=== PATIENT | female | born 1995 | race American Indian/Alaskan Native ===

== ENCOUNTER 2020-09-18 21:12 | Outpatient (CLI) | payer MEDICAID ==
[2020-09-18 21:34] VITALS: BP 132/82
[2020-09-18] MEDS ORDERED: LACTATED RINGERS 1,000 ML IV ONE (21:46)
[2020-09-18 22:14] LABS: Bilirubin,Urine NEG (Negative); Blood,Urine NEG (Negative); Color,Urine Yellow (Yellow); Mucus,Urine 2+ /HPF; Urobilinogen,Urine < 2.0 mg/dL (<2.0)
== END 2020-09-18 22:55 | disposition home or self-care (01) ==
LOC: TRG 21:12 → APU 21:19 → TRG 22:55
PROVIDERS: ATTEND Obstetrics & Gynecology
DX: O26.93 Pregnancy related conditions, unspecified, third trimester (principal); R10.9 Unspecified abdominal pain; Z3A.31 31 weeks gestation of pregnancy
CPT/HCPCS: 59025; 81001; 87086

== ENCOUNTER 2020-10-31 18:43 | Outpatient (CLI) | payer MEDICAID ==
[2020-10-31 19:09] VITALS: BP 132/75
== END 2020-10-31 21:35 | disposition home or self-care (01) ==
LOC: TRG 18:43 → APU 18:45 → TRG 21:35
PROVIDERS: ATTEND Obstetrics & Gynecology
DX: Z34.93 Encounter for supervision of normal pregnancy, unspecified, third trimester (principal); Z3A.37 37 weeks gestation of pregnancy
CPT/HCPCS: 59025

== ENCOUNTER 2020-11-05 14:31 | Outpatient (CLI) | payer MEDICAID ==
[2020-11-05 15:12] VITALS: BP 125/70
--- NOTE | 2020-11-05 17:13 | Ultrasound Report ---
ULTRASOUND OBSTETRIC LIMITED ULTRASOUND BIOPHYSICAL PROFILE INDICATION / CLINICAL INFORMATION: bpp/alisha. Clinical Gestational Age (GA): 38.1 weeks.days COMPARISON: None available. FINDINGS: BREATHING MOVEMENT = 2 GROSS BODY MOVEMENT = 2 TONE = 2 QUALITATIVE AMNIOTIC FLUID VOLUME = 2 TOTAL BIOPHYSICAL SCORE = 8/8 HEART RATE (beats per minute): 134-141 AMNIOTIC FLUID INDEX (cm) = 14.1 (normal = 7-24 cm) PRESENTATION: Cephalic. ADDITIONAL FINDINGS: None. IMPRESSION: 1. Biophysical Score = 8/8 2. Single gestation with cephalic presentation and no significant abnormality.. Signer Name: Christopher Couch MD Signed: 11/05/2020 5:09 PM Workstation Name: [id number]
== END 2020-11-05 17:27 | disposition home or self-care (01) ==
LOC: TRG 14:31 → APU 14:32 → TRG 17:27
PROVIDERS: ATTEND Obstetrics & Gynecology
DX: Z34.93 Encounter for supervision of normal pregnancy, unspecified, third trimester (principal); Z3A.38 38 weeks gestation of pregnancy
CPT/HCPCS: 59025; 76815; 76819

== ENCOUNTER 2020-11-11 11:54 | Inpatient (IN) | payer MEDICAID ==
[2020-11-11] MEDS ORDERED: LACTATED RINGERS 1,000 ML ONE (12:49)
[2020-11-11] MEDS ORDERED: TERBUTALINE 1 MG/1 ML INJ SUB-Q PRN (12:52)
[2020-11-11] MEDS ORDERED: fentaNYL 100 MCG/2 ML INJ IV PRN (12:52)
[2020-11-11] MEDS ORDERED: MINERAL OIL 30 ML ORAL LIQD PO PRN (12:52)
[2020-11-11] MEDS ORDERED: BUTORPHANOL 2 MG/1 ML INJ IV PRN ×2 (12:52)
[2020-11-11] MEDS ORDERED: LIDOCAINE (2%) 20 MG/1 ML VIAL 20 ML MDV INFILTRATI ONE (12:52)
[2020-11-11] MEDS ORDERED: ePHEDrine SULFATE 50 MG/1 ML INJ IV PRN (12:52)
[2020-11-11] MEDS ORDERED: ACETAMINOPHEN 325 MG TAB PO PRN (12:52)
[2020-11-11] MEDS ORDERED: ONDANSETRON 4 MG/2 ML INJ IV PRN ×2 (12:52→19:20)
[2020-11-11] MEDS ORDERED: NalbUPHINE 10 MG/1 ML INJ IV PRN (12:52)
[2020-11-11] MEDS ORDERED: OXYTOCIN DRIP 30 UNITS/500 ML BAG IV SCH ×2 (13:00)
--- NOTE | 2020-11-11 13:11 | History and Physical Report ---
History of Present Illness Date of examination: 11/11/20 Chief complaint: active labor History of present illness: 25yo at 39+0/7 weeks with DARIANA presents to OB triage in active labor. PNC at [facility]. PNR in chart Past History - Obstetrical History Expected Date of Delivery: 11/18/20 Actual Gestation: 39 Week(s) 0 Day(s) : 4 Para: 1 Medications and Allergies Allergies Allergy/AdvReac Type Severity Reaction Status Date / Time amoxicillin Allergy Hives Verified 09/18/20 21:45 Active Meds: Active Medications Acetaminophen (Acetaminophen 325 Mg Tab) 650 mg PO Q4H PRN PRN Reason: Pain, Mild (1-3) Butorphanol Tartrate (Butorphanol 2 Mg/1 Ml Inj) 1 mg IV Q2H PRN PRN Reason: Pain, Moderate(4-6) LABOR PAIN Butorphanol Tartrate (Butorphanol 2 Mg/1 Ml Inj) 2 mg IV Q2H PRN PRN Reason: Pain , Severe (7-10) Ephedrine Sulfate (Ephedrine Sulfate 50 Mg/1 Ml Inj) 10 mg IV Q2M PRN PRN Reason: Hypotension Fentanyl (Fentanyl 100 Mcg/2 Ml Inj) 100 mcg IV Q2H PRN PRN Reason: Pain,Severe (7-10) LABOR PAIN Oxytocin/Sodium Chloride (Pitocin/Ns 30 Unit/500ml) 30 units in 500 mls @ 2 mls/hr IV TITR LEYLA; Protocol Lactated Ringer's (Lactated Ringers) 1,000 mls @ 125 mls/hr IV DIRECT LEYLA Oxytocin/Sodium Chloride (Pitocin/Ns 30 Unit/500ml) 30 units in 500 mls @ 40 mls/hr IV TITR LEYLA; Protocol Ampicillin Sodium (Ampicillin/Ns 1 Gm/50 Ml) 1 gm in 50 mls @ 100 mls/hr IV Q4H LEYLA; Protocol Ampicillin Sodium (Ampicillin/Ns 2 Gm/100 Ml) 2 gm in 100 mls @ 100 mls/hr IV ONCE ONE; Protocol Stop: 11/11/20 13:51 Mineral Oil (Mineral Oil 30 Ml Oral Liqd) 30 ml PO QHS PRN PRN Reason: Constipation Nalbuphine HCl (Nalbuphine 10 Mg/1 Ml Inj) 10 mg IV Q2H PRN PRN Reason: Pain, Moderate (4-6) Ondansetron HCl (Ondansetron 4 Mg/2 Ml Inj) 4 mg IV Q8H PRN PRN Reason: Nausea And Vomiting Terbutaline Sulfate (Terbutaline 1 Mg/1 Ml Inj) 0.25 mg SUB-Q ONCE PRN PRN Reason: Hyperstimulation/Hypertonicity Review of Systems All systems: negative (painful contractions) - Vital Signs Vital signs: Vital Signs Pulse BP Pulse Ox 113 H 127/77 98 11/11/20 12:16 11/11/20 12:16 11/11/20 12:16 Temp Pulse Resp BP Pulse Ox 99.0 F 96 H 127/77 96 11/11/20 12:22 11/11/20 13:06 11/11/20 12:16 11/11/20 13:06 - Physical Exam Breasts: Positive: deferred Cardiovascular: Regular rate Lungs: Positive: Clear to auscultation Abdomen: Positive: normal appearance - Obstetrical FHR: category 1 Cervical Dilatation: 6 Cervical Effacement Percentage: 90 station: -1 Results Result Diagrams: 11/11/20 Unknown All other labs normal. Assessment and Plan A: Active Labor Plan: Admission CFM expect
[2020-11-11] MEDS ORDERED: AMPICILLIN/NS 2 GM/100 ML 2 GM/100 ML BAG IV ONE (13:30)
[2020-11-11 13:36] LABS: Hematocrit 35.6 % (30.3-42.9); Hemoglobin 12.2 gm/dl (10.1-14.3); Mean Corpuscular HGB Conc 34 % (30-34); Mean Corpuscular Volume 88 fl (79-97); Platelet Count 186 K/mm3 (140-440); Red Blood Count 4.05 M/mm3 (3.65-5.03); Red Cell Distribution Width 13.5 % (13.2-15.2)
[2020-11-11] MEDS ORDERED: LACTATED RINGERS 1,000 ML IV SCH (14:00)
[2020-11-11] MEDS ORDERED: AMPICILLIN/NS 1 GM/50 ML 1 GM/50 ML BAG IV SCH (17:30)
--- NOTE | 2020-11-11 19:15 | Progress Note ---
Subjective - Subjective Date of service: 11/11/20 Interval history: 25yo at weeks with DARIANA presents to OB triage in active labor. PNC at [facility]. Objective - Vital Signs Vital Signs: Vital Signs - 12hr 11/11/20 11/11/20 11/11/20 12:16 12:21 12:22 Temperature 99.0 F Pulse Rate 113 H 115 H Respiratory Rate Blood Pressure 127/77 O2 Sat by Pulse 98 99 Oximetry 11/11/20 11/11/20 11/11/20 12:26 12:31 12:36 Temperature Pulse Rate 106 H 101 H 104 H Respiratory Rate Blood Pressure O2 Sat by Pulse 99 98 98 Oximetry 11/11/20 11/11/20 11/11/20 12:41 12:46 12:51 Temperature Pulse Rate 105 H 90 101 H Respiratory Rate Blood Pressure O2 Sat by Pulse 99 99 100 Oximetry 11/11/20 11/11/20 11/11/20 12:56 12:58 13:01 Temperature Pulse Rate 90 96 H 109 H Respiratory Rate Blood Pressure O2 Sat by Pulse 100 89 99 Oximetry 11/11/20 11/11/20 11/11/20 13:06 13:31 13:32 Temperature Pulse Rate 96 H 101 H 99 H Respiratory Rate Blood Pressure 136/74 O2 Sat by Pulse 96 99 Oximetry 11/11/20 11/11/20 11/11/20 13:36 13:41 13:46 Temperature Pulse Rate 91 H 100 H 114 H Respiratory Rate Blood Pressure O2 Sat by Pulse 99 98 99 Oximetry 11/11/20 11/11/20 11/11/20 13:51 13:56 14:01 Temperature Pulse Rate 97 H 89 98 H Respiratory Rate Blood Pressure O2 Sat by Pulse 99 100 100 Oximetry 11/11/20 11/11/20 11/11/20 14:06 14:11 14:16 Temperature Pulse Rate 92 H 93 H 99 H Respiratory Rate Blood Pressure O2 Sat by Pulse 100 100 100 Oximetry 11/11/20 11/11/20 11/11/20 14:25 14:30 14:35 Temperature Pulse Rate 90 105 H 102 H Respiratory Rate Blood Pressure O2 Sat by Pulse 100 100 100 Oximetry 11/11/20 11/11/20 11/11/20 14:40 14:45 14:50 Temperature Pulse Rate 96 H 122 H 104 H Respiratory Rate Blood Pressure O2 Sat by Pulse 99 99 100 Oximetry 11/11/20 11/11/20 11/11/20 14:55 15:00 15:05 Temperature Pulse Rate 105 H 115 H 103 H Respiratory Rate Blood Pressure O2 Sat by Pulse 98 100 100 Oximetry 11/11/20 11/11/20 11/11/20 15:10 15:15 15:20 Temperature Pulse Rate 119 H 117 H 115 H Respiratory Rate Blood Pressure O2 Sat by Pulse 100 100 99 Oximetry 11/11/20 11/11/20 11/11/20 15:25 15:30 15:35 Temperature Pulse Rate 111 H 101 H 100 H Respiratory Rate Blood Pressure O2 Sat by Pulse 99 100 100 Oximetry 11/11/20 11/11/20 11/11/20 15:40 15:45 15:50 Temperature Pulse Rate 105 H 117 H 105 H Respiratory Rate Blood Pressure O2 Sat by Pulse 99 100 100 Oximetry 11/11/20 11/11/20 11/11/20 15:55 16:00 16:05 Temperature Pulse Rate 108 H 105 H 114 H Respiratory Rate Blood Pressure O2 Sat by Pulse 100 100 98 Oximetry 11/11/20 11/11/20 11/11/20 16:10 16:11 16:13 Temperature 99.0 F Pulse Rate 101 H 106 H Respiratory Rate Blood Pressure 134/79 O2 Sat by Pulse 100 Oximetry 11/11/20 11/11/20 11/11/20 16:15 16:20 16:25 Temperature Pulse Rate 103 H 118 H 110 H Respiratory Rate Blood Pressure 132/76 O2 Sat by Pulse 100 100 100 Oximetry 11/11/20 11/11/20 11/11/20 16:30 16:35 16:40 Temperature Pulse Rate 107 H 113 H 111 H Respiratory Rate Blood Pressure 135/73 O2 Sat by Pulse 100 99 100 Oximetry 11/11/20 11/11/20 11/11/20 16:45 16:50 16:55 Temperature Pulse Rate 119 H 104 H 110 H Respiratory Rate Blood Pressure 132/78 O2 Sat by Pulse 100 100 99 Oximetry 11/11/20 11/11/20 11/11/20 17:00 17:05 17:09 Temperature Pulse Rate 118 H 114 H Respiratory 22 Rate Blood Pressure O2 Sat by Pulse 100 100 Oximetry 11/11/20 11/11/20 11/11/20 17:10 17:15 17:17 Temperature Pulse Rate 112 H 106 H 107 H Respiratory Rate Blood Pressure 140/97 O2 Sat by Pulse 100 93 84 Oximetry 11/11/20 11/11/20 11/11/20 17:19 17:20 17:25 Temperature Pulse Rate 98 H 100 H 103 H Respiratory Rate Blood Pressure 139/69 132/65 O2 Sat by Pulse 96 98 Oximetry 11/11/20 11/11/20 11/11/20 17:30 17:35 17:40 Temperature Pulse Rate 111 H 101 H 109 H Respiratory Rate Blood Pressure O2 Sat by Pulse 99 99 98 Oximetry 11/11/20 11/11/20 11/11/20 17:41 17:45 17:50 Temperature Pulse Rate 98 H 111 H 88 Respiratory Rate Blood Pressure 126/60 O2 Sat by Pulse 98 98 Oximetry 11/11/20 11/11/20 11/11/20 17:55 18:00 18:05 Temperature Pulse Rate 98 H 100 H 99 H Respiratory Rate Blood Pressure 128/63 O2 Sat by Pulse 98 99 99 Oximetry 11/11/20 11/11/20 11/11/20 18:09 18:10 18:11 Temperature Pulse Rate 103 H 93 H Respiratory 18 Rate Blood Pressure 135/71 O2 Sat by Pulse 99 Oximetry 11/11/20 11/11/20 11/11/20 18:15 18:20 18:25 Temperature Pulse Rate 94 H 109 H 91 H Respiratory Rate Blood Pressure 135/76 O2 Sat by Pulse 100 100 99 Oximetry 11/11/20 11/11/20 11/11/20 18:30 18:35 18:38 Temperature Pulse Rate 103 H 100 H 98 H Respiratory Rate Blood Pressure O2 Sat by Pulse 100 99 90 Oximetry 11/11/20 11/11/20 11/11/20 18:40 18:41 18:45 Temperature Pulse Rate 100 H 95 H 92 H Respiratory Rate Blood Pressure 142/61 O2 Sat by Pulse 100 99 Oximetry 11/11/20 11/11/20 11/11/20 18:46 18:50 18:53 Temperature Pulse Rate 97 H 104 H 92 H Respiratory Rate Blood Pressure O2 Sat by Pulse 93 100 93 Oximetry 11/11/20 11/11/20 18:55 19:00 Temperature Pulse Rate 104 H 100 H Respiratory Rate Blood Pressure 144/65 O2 Sat by Pulse 99 100 Oximetry - Labs Labs: Laboratory Results - last 24 hr 03/22/21 03/22/21 14:32 Unknown WBC 7.1 RBC 4.05 Hgb 12.2 Hct 35.6 MCV 88 MCH 30 MCHC 34 RDW 13.5 Plt Count 186 Blood Type B POSITIVE Antibody Screen Negative
[2020-11-11] MEDS ORDERED: diphenhydrAMINE 25 MG CAP PO PRN (19:20)
[2020-11-11] MEDS ORDERED: PROMETHAZINE 25 MG TAB PO PRN (19:20)
[2020-11-11] MEDS ORDERED: MAGNESIUM HYDROXIDE (MOM) ORAL LIQD UDC PO PRN (19:20)
[2020-11-11] MEDS ORDERED: LANOLIN/ZINC/DIMETHICONE (LANSINOH) 7 GM TP PRN (19:20)
[2020-11-11] MEDS ORDERED: HYDROcodone/ACETAMINOPHEN 5-325 MG TAB PO PRN (19:20)
[2020-11-11] MEDS ORDERED: WITCH HAZEL/ GLYCERIN PAD TP PRN (19:20)
[2020-11-11] MEDS ORDERED: PROMETHAZINE 25 MG RECT SUPP PR PRN (19:20)
--- NOTE | 2020-11-11 19:20 | Procedure Note ---
OB Delivery Note - Delivery Date of Delivery: 11/11/20 Surgeon: YURIY LOPEZ Estimated blood loss: 200cc - Vaginal Delivery position: OA Intrapartum events: none Delivery induction: none Delivery augmentation: rupture of membranes, pitocin Delivery monitor: external FHT, external uterine Route of delivery: Delivery placenta: spontaneous Delivery cord: 3 umbilical vessels Episiotomy: none Delivery laceration: none Anesthesia: intravenous Delivery comments: I was called to the room for sterile cervical exam 10/100%/+1 station, patient had urged to push. She proceeded to push to delivery of a viable male infant with weight 2879gms and 8/9. Position was CRISTOPHER, no nuchal cord. Delivery of the anterior shoulder was atraumatic, remainder of delivery uneventful. Spontaneous cry at delivery. Baby was bulb suctioned and warmed on the bed and placed on the maternal abdomen. After delayed cord clamping of around 1 minutes the cord was clamped and cut and baby handed to waiting NICU staff. An intact placenta with three-vessel cord was delivered spontaneously. The fundus was noted to be firm and there were no vaginal or cervical lacerations. All sponge needle instrument counts are correct x2. Mom and baby stable to . EBL 200. No complications. Donna Lopez MD
[2020-11-11] MEDS: IBUPROFEN 600 MG TAB PO SCH (22:00)
[2020-11-12] MEDS: IBUPROFEN 600 MG TAB PO SCH ×3 (04:33→21:46)
[2020-11-12 06:27] LABS: Hemoglobin 10.5 gm/dl (10.1-14.3)
--- NOTE | 2020-11-12 07:40 | Progress Note ---
Assessment and Plan A: PPD1 s/p at term P: Continue with routine care with anticipated discharge at 24hr . Subjective - Subjective Date of service: 11/12/20 Principal diagnosis: PPD1 s/p at term Interval history: Patient feeling well without complaints. Reports adequate pain control and decreasing lochia. Patient reports: appetite normal, voiding normally, pain well controlled, ambu lating normally : doing well Objective - Vital Signs Latest vital signs: Vital Signs Temp Pulse Resp BP BP Pulse Ox 11/12/20 05:00 98.3 F 92 H 18 120/64 98 11/12/20 01:04 98.0 F 107 H 18 117/61 97 11/11/20 21:24 98.3 F 94 H 20 111/50 96 11/11/20 20:55 98.9 F 101 H 128/58 11/11/20 20:50 93 H 99 11/11/20 20:45 102 H 99 11/11/20 20:40 103 H 132/62 98 11/11/20 20:35 94 H 99 11/11/20 20:30 100 H 98 11/11/20 20:25 95 H 136/74 99 11/11/20 20:20 99 H 98 11/11/20 20:15 108 H 99 11/11/20 20:10 97 H 121/58 99 11/11/20 20:05 96 H 99 11/11/20 20:00 104 H 99 11/11/20 19:55 107 H 131/62 98 11/11/20 19:50 101 H 99 11/11/20 19:45 107 H 98 11/11/20 19:35 81 97 11/11/20 19:30 98.2 F 100 H 18 131/60 131/60 98 11/11/20 19:25 115 H 136/74 11/11/20 19:05 118 H 100 11/11/20 19:00 100 H 100 11/11/20 18:55 104 H 144/65 99 11/11/20 18:53 92 H 93 11/11/20 18:50 104 H 100 11/11/20 18:46 97 H 93 11/11/20 18:45 92 H 99 11/11/20 18:41 95 H 142/61 11/11/20 18:40 100 H 100 11/11/20 18:38 98 H 90 11/11/20 18:35 100 H 99 11/11/20 18:30 103 H 100 11/11/20 18:25 91 H 135/76 99 11/11/20 18:20 109 H 100 11/11/20 18:15 94 H 100 11/11/20 18:11 93 H 135/71 11/11/20 18:10 103 H 99 11/11/20 18:09 18 11/11/20 18:05 99 H 99 11/11/20 18:00 100 H 99 11/11/20 17:55 98 H 128/63 98 11/11/20 17:50 88 98 11/11/20 17:45 111 H 98 11/11/20 17:41 98 H 126/60 11/11/20 17:40 109 H 98 11/11/20 17:35 101 H 99 11/11/20 17:30 111 H 99 11/11/20 17:25 103 H 132/65 98 11/11/20 17:20 100 H 96 11/11/20 17:19 98 H 139/69 11/11/20 17:17 107 H 84 11/11/20 17:15 106 H 93 11/11/20 17:10 112 H 140/97 100 11/11/20 17:09 22 11/11/20 17:05 114 H 100 11/11/20 17:00 118 H 100 11/11/20 16:55 110 H 132/78 99 11/11/20 16:50 104 H 100 11/11/20 16:45 119 H 100 11/11/20 16:40 111 H 135/73 100 11/11/20 16:35 113 H 99 11/11/20 16:30 107 H 100 11/11/20 16:25 110 H 132/76 100 11/11/20 16:20 118 H 100 11/11/20 16:15 103 H 100 11/11/20 16:13 99.0 F 11/11/20 16:11 106 H 134/79 11/11/20 16:10 101 H 100 11/11/20 16:05 114 H 98 11/11/20 16:00 105 H 100 11/11/20 15:55 108 H 100 11/11/20 15:50 105 H 100 11/11/20 15:45 117 H 100 11/11/20 15:40 105 H 99 11/11/20 15:35 100 H 100 11/11/20 15:30 101 H 100 11/11/20 15:25 111 H 99 11/11/20 15:20 115 H 99 11/11/20 15:15 117 H 100 11/11/20 15:10 119 H 100 11/11/20 15:05 103 H 100 11/11/20 15:00 115 H 100 11/11/20 14:55 105 H 98 11/11/20 14:50 104 H 100 11/11/20 14:45 122 H 99 11/11/20 14:40 96 H 99 11/11/20 14:35 102 H 100 11/11/20 14:30 105 H 100 11/11/20 14:25 90 100 11/11/20 14:16 99 H 100 11/11/20 14:11 93 H 100 11/11/20 14:06 92 H 100 11/11/20 14:01 98 H 100 11/11/20 13:56 89 100 11/11/20 13:51 97 H 99 11/11/20 13:46 114 H 99 11/11/20 13:41 100 H 98 11/11/20 13:36 91 H 99 11/11/20 13:32 99 H 136/74 11/11/20 13:31 101 H 99 11/11/20 13:06 96 H 96 11/11/20 13:01 109 H 99 11/11/20 12:58 96 H 89 11/11/20 12:56 90 100 11/11/20 12:51 101 H 100 11/11/20 12:46 90 99 11/11/20 12:41 105 H 99 11/11/20 12:36 104 H 98 11/11/20 12:31 101 H 98 11/11/20 12:26 106 H 99 11/11/20 12:22 99.0 F 11/11/20 12:21 115 H 99 11/11/20 12:16 113 H 127/77 98 Intake and Output 11/11/20 11/11/20 11/12/20 15:59 23:59 07:59 Intake Total 840 Output Total 600 Balance 240 Intake: Intake, Free Water 840 Output: Urine 600 Void 600 Other: Total, Output Amount 600 # Voids Void 1 2 Weight 93.44 kg Estimated Blood Loss 200 - Exam Breasts: Present: deferred Uterus: Present: firm, fundal height below umbilicus
--- NOTE | 2020-11-12 07:42 | Discharge Summary ---
Providers - Providers Date of Admission: 11/11/20 19:09 Date of discharge: 11/12/20 Attending physician: WAYNE BARRY Primary care physician: WAYNE BARRY Hospitalization Reason for admission: active labor, IUP at term Delivery: Episiotomy: none Laceration: none Other procedures: none complications: none Discharge diagnosis: IUP at term delivered Ulen baby: male Condition at discharge: Good Disposition: DC-01 TO HOME OR SELFCARE Plan - Provider Discharge Summary Activity: no sex for 6 weeks, no heavy lifting 4 weeks, no strenuous exercise Diet: routine Instructions: routine Additional instructions: [] Smoking cessation referral if applicable(refer to patient education folder for contact #) [] Refer to [facility]'s [facility] [address] Booklet Call your doctor immediately for: * Fever > 100.5 * Heavy vaginal bleeding ( >1 pad per hour) * Severe persistent headache * Shortness of breath * Reddened, hot, painful area to leg or breast * Drainage or odor from incision. * Keep incision clean and dry at all times and follow doctor's instructions regarding bathing/showering - Follow up plan Follow up: JANINA CROSS DIRECTOR INDEX [Advanced Practice Nurse] - 12/09/20
[2020-11-13] MEDS: IBUPROFEN 600 MG TAB PO SCH ×3 (05:41→11:27)
[2020-11-13] MEDS ORDERED: DIPHtheria,PERTUSSIS(ACELL),TETANUS VACCINE/PF 0.5 ML VIAL IM ONE (06:00)
--- NOTE | 2020-11-13 12:32 | Consultation ---
History of Present Illness - Reason for Consult Consult date: 11/13/20 Reason for consult: MHE Requesting physician: YURIY LOPEZ - Chief Complaint Chief complaint: active labor - History of Present Psychiatric Illness PSYCH HPI Patient is a 25 year old unemployed and engaged female with no significant past medical history or psychiatric history who was admitted to mother and baby for delivery with psychiatric consult placed due to high score on Dawson scale. Patient was seen in room with fiance at bedside. Per patient, she denies any stressful even prior, during or after , states "she didnt like being lol" but glad to see her own son now. She denies having any safety concerns at home or with the baby. Patient describes a good and stable mood, denies being depressed or excessively nervous. Patient eats and sleeps well. Patient denies panic attacks, recurrent nightmares or flashbacks. Patient denies symptoms suggestive of OCD or PTSD. Patient denies hallucinations, paranoia, thought interference and no features suggestive of hypomania or jos. Patiently completely denies suicidal or homicidal thoughts. PAST PSYCHIATRIC HISTORY Diagnoses: none reported Suicide attempts or Self-harm behavior: none reported Prior psychiatric hospitalizations: none reported Substance Abuse history: none reported Previous psychiatric medications tried: none reported Outpatient treatment: none reported PAST MEDICAL HISTORY: None reported. Covid Positive Family Psychiatric History: None reported or documented SOCIAL HISTORY Marital Status: Engaged Living Arrangements: with Employment Status: unemployed Access to guns/weapons: Education: some college History of Abuse: none reported Legal History: none reported REVIEW OF SYSTEMS Constitutional: Negative for weight loss ENT: Negative for stridor Respiratory: Negative for cough or hemoptysis All other systems reviewed and are negative MENTAL STATUS EXAMINATION General Appearance and Behavior: Age appropriate, good hygiene, wearing appropriate clothes, good eye contact, cooperative polite with questioning. Cooperation: Participating/engaged Psychomotor Behavior: unremarkable and within normal limits Mood: Good Affect and affective range: congruent with mood Thought Process: Fluent/Logical, Thought Content: Within reality, Speech: Normal volume, Regular rate and rhythm, Intellectual Functioning: Average Suicidal Ideation: Denies SI Homicidal Ideation: Denies HI Impulse Control: Unimpaired Insight and Judgment: Normal insight and judgment, Memory: Normal, Attention: Normal, Orientation: Alert, oriented Diagnoses: Assessment and Plan - Psychiatric problem (1) No abnormality detected on mental health assessment Current Visit: Yes Status: Acute Z71.3 Treatment Plan MEDICATIONS: Risks, benefits and alternatives of medications discussed with the patient, questions answered and consent obtained from patient. PSYCHOTHERAPY: Supportive psychotherapy provided MEDICAL: Per primary team DELIRIUM PRECAUTIONS: Please re-orient patient frequently, keep lights on during the day, and minimize benzodiazepines and opiates as these medications could worsen patient's confusion. IP TECHNOLOGY TRANSACTIONS ATTORNEY: DISPOSITION: Do Not Recommend acute inpatient psychiatric hospitalization at this time. Case discussed with Dr. Manrique who agrees with current disposition LEGAL STATUS: Voluntary FOLLOW-UP: Will sign off Thank you for the consult. Please contact with any questions and/or concerns. Medications and Allergies Allergies Allergy/AdvReac Type Severity Reaction Status Date / Time amoxicillin Allergy Hives Verified 09/18/20 21:45 Home Medications Medication Instructions Recorded Confirmed Last Taken Type Ibuprofen [Motrin] 800 mg PO Q8HR PRN #30 tablet 11/12/20 Unknown Rx Ibuprofen [Motrin] 800 mg PO Q8HR PRN #30 tablet 11/12/20 Unknown Rx Active Meds: Active Medications Acetaminophen (Acetaminophen 325 Mg Tab) 650 mg PO Q4H PRN PRN Reason: Pain, Mild (1-3) Hydrocodone Bitart/Acetaminophen (Hydrocodone/Acetaminophen 5-325 Mg Tab) 2 each PO Q6H PRN PRN Reason: Pain, Moderate (4-6) Bisacodyl (Bisacodyl 10 Mg Rect Supp) 10 mg NJ BID PRN PRN Reason: Constipation Butorphanol Tartrate (Butorphanol 2 Mg/1 Ml Inj) 1 mg IV Q2H PRN PRN Reason: Pain, Moderate(4-6) LABOR PAIN Butorphanol Tartrate (Butorphanol 2 Mg/1 Ml Inj) 2 mg IV Q2H PRN PRN Reason: Pain , Severe (7-10) Last Admin: 11/11/20 17:09 Dose: 2 mg Documented by: Diphenhydramine HCl (Diphenhydramine 25 Mg Cap) 25 mg PO Q6H PRN PRN Reason: Itching Ephedrine Sulfate (Ephedrine Sulfate 50 Mg/1 Ml Inj) 10 mg IV Q2M PRN PRN Reason: Hypotension Fentanyl (Fentanyl 100 Mcg/2 Ml Inj) 100 mcg IV Q2H PRN PRN Reason: Pain,Severe (7-10) LABOR PAIN Oxytocin/Sodium Chloride (Pitocin/Ns 30 Unit/500ml) 30 units in 500 mls @ 2 mls/hr IV TITR LEYLA; Protocol Lactated Ringer's (Lactated Ringers) 1,000 mls @ 125 mls/hr IV DIRECT LEYLA Last Admin: 11/11/20 13:43 Dose: 125 mls/hr Documented by: Oxytocin/Sodium Chloride (Pitocin/Ns 30 Unit/500ml) 30 units in 500 mls @ 40 mls/hr IV TITR LEYLA; Protocol Last Admin: 11/11/20 17:18 Dose: 2 ml/hr, 2 mls/hr Documented by: Clindamycin HCl (Cleocin 900 Mg/50 Ml) 900 mg in 50 mls @ 100 mls/hr IV Q8H LEYLA; Protocol Last Admin: 11/11/20 13:54 Dose: 100 mls/hr Documented by: Ibuprofen (Ibuprofen 600 Mg Tab) 600 mg PO Q6H LEYLA Last Admin: 11/13/20 11:27 Dose: 600 mg Documented by: Magnesium Hydroxide (Magnesium Hydroxide (Mom) Oral Liqd Udc) 30 ml PO HS PRN PRN Reason: Constipation Mineral Oil (Mineral Oil 30 Ml Oral Liqd) 30 ml PO QHS PRN PRN Reason: Constipation Multi-Ingredient Ointment (Lanolin/Zinc/Dimethicone (Lansinoh) 7 Gm) 1 applic TP PRN PRN PRN Reason: Sore Nipples Nalbuphine HCl (Nalbuphine 10 Mg/1 Ml Inj) 10 mg IV Q2H PRN PRN Reason: Pain, Moderate (4-6) Ondansetron HCl (Ondansetron 4 Mg/2 Ml Inj) 4 mg IV Q8H PRN PRN Reason: Nausea And Vomiting Promethazine HCl (Promethazine 25 Mg Rect Supp) 25 mg NJ Q6H PRN PRN Reason: Nausea And Vomiting Promethazine HCl (Promethazine 25 Mg Tab) 25 mg PO Q6H PRN PRN Reason: Nausea And Vomiting Last Admin: 11/11/20 22:04 Dose: 25 mg Documented by: Sodium Chloride (Sodium Chloride 0.9% 10 Ml Flush Syringe) 10 ml IV PRN LEYLA Terbutaline Sulfate (Terbutaline 1 Mg/1 Ml Inj) 0.25 mg SUB-Q ONCE PRN PRN Reason: Hyperstimulation/Hypertonicity Witch Lorelei/Glycerin (Witch Lorelei/ Glycerin Pad) 1 each TP PRN PRN PRN Reason: Hemorrhoid/cleansing/soothing Mental Status Exam - Vital signs Last Vital Signs Temp 99.4 F 11/13/20 08:29 Pulse 89 11/13/20 08:29 Resp 18 11/13/20 08:29 BP 115/80 11/13/20 08:29 Pulse Ox 95 11/13/20 08:29 Results Result Diagrams: 11/12/20 06:09 All other labs normal.
[2020-11-13 14:35] VITALS: BP 134/75
== END 2020-11-13 15:04 | disposition home or self-care (01) | DRG 775 ==
LOC: TRG 11:54 → APU 11:55 → LD 13:07 → TRG 19:09 → OB 21:18
PROVIDERS: ADMIT Obstetrics & Gynecology; ATTEND Obstetrics & Gynecology
PROC: 10E0XZZ Delivery of Products of Conception, External Approach (ICD-10-PCS; principal; 2020-11-11)
DX: O80 Encounter for full-term uncomplicated delivery (principal); Z3A.39 39 weeks gestation of pregnancy; Z37.0 Single live birth; Z20.822 Contact with and (suspected) exposure to COVID-19
CPT/HCPCS: 36415; 85014; 85018; 85027; 86592; 86850; 86900; 86901; 90471; 90715; G0378; J0595; J2590; J7120; Q0169; U0003

== ENCOUNTER 2020-11-19 20:00 | Emergency (ER) | payer MEDICAID | END 2020-11-20 07:34 | LOC: ED 20:00 | DX: M79.604 Pain in right leg (principal); Z53.21 Procedure and treatment not carried out due to patient leaving prior to being seen by health care provider ==

== ENCOUNTER 2021-07-09 13:33 | Emergency (ER) | payer MEDICAID ==
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
[2021-07-09 15:04] VITALS: BP 126/72
== END 2021-07-09 15:43 | disposition home or self-care (01) ==
LOC: ED 13:33
DX: S76.812A Strain of other specified muscles, fascia and tendons at thigh level, left thigh, initial encounter (principal); S76.811A Strain of other specified muscles, fascia and tendons at thigh level, right thigh, initial encounter; R51.9 Headache, unspecified; Z88.1 Allergy status to other antibiotic agents; Z79.899 Other long term (current) drug therapy; V87.7XXA Person injured in collision between other specified motor vehicles (traffic), initial encounter; Y93.89 Activity, other specified; Y92.488 Other paved roadways as the place of occurrence of the external cause; Y99.8 Other external cause status
CPT/HCPCS: 99281

== ENCOUNTER 2022-04-02 08:13 | Outpatient (CLI) | payer MEDICAID ==
[2022-04-02] MEDS ORDERED: LACTATED RINGERS 500 ML IV ONE (09:00)
[2022-04-02 10:51] LABS: Hematocrit 35.6 % (30.3-42.9); Mean Corpuscular HGB Conc 34 % (30-34); Mean Corpuscular Volume 89 fl (79-97); Platelet Count 191 K/mm3 (140-440); Red Cell Distribution Width 13.1 % (13.2-15.2)
[2022-04-02 11:16] LABS: Alanine Aminotransferase 12 units/L (7-56); Uric Acid 3.1 mg/dL (3.5-7.6)
[2022-04-02 12:40] VITALS: BP 153/87
== END 2022-04-02 13:34 | disposition home or self-care (01) ==
LOC: TRG 08:13 → APU 08:15 → TRG 13:34
PROVIDERS: ATTEND Obstetrics & Gynecology
DX: O26.893 Other specified pregnancy related conditions, third trimester (principal); R10.9 Unspecified abdominal pain; R10.2 Pelvic and perineal pain; R51.9 Headache, unspecified
CPT/HCPCS: 36415; 59025; 82565; 83615; 84450; 84460; 84550; 85027

== ENCOUNTER 2022-04-06 16:31 | Outpatient (CLI) | payer MEDICAID ==
[2022-04-06] MEDS ORDERED: hydrALAZINE 20 MG/1 ML INJ IV PRN (16:50)
[2022-04-06 18:27] LABS: Hemoglobin 12.3 gm/dl (10.1-14.3); Mean Corpuscular HGB Conc 35 % (30-34); Mean Corpuscular Volume 88 fl (79-97); Platelet Count 200 K/mm3 (140-440); Red Blood Count 3.98 M/mm3 (3.65-5.03); Red Cell Distribution Width 12.9 % (13.2-15.2)
[2022-04-06 18:31] LABS: Mucus,Urine 1+ /HPF
[2022-04-06 18:34] LABS: Bilirubin,Urine Negative (Negative); Blood,Urine Negative (Negative); Color,Urine Yellow (Yellow); Urobilinogen,Urine < 2.0 mg/dL (<2.0)
[2022-04-06 18:37] LABS: Alanine Aminotransferase 11 units/L (7-56); Uric Acid 3.4 mg/dL (3.5-7.6)
[2022-04-06 19:17] VITALS: BP 109/58
--- NOTE | 2022-04-06 22:43 | Ultrasound Report ---
Obstetric ultrasound Biophysical profile INDICATION: well-being FINDINGS: Single live intrauterine cephalic position. MARLO measures 9.1 cm. heart rate 165. Biophysical profile 8 out of 8 IMPRESSION: Normal biophysical profile. Live intrauterine . Signer Name: Bong Badillo MD Signed: 04/06/2022 10:39 PM Workstation Name: [id number]
--- NOTE | 2022-04-06 22:43 | Ultrasound Report ---
Obstetric ultrasound Biophysical profile INDICATION: well-being FINDINGS: Single live intrauterine cephalic position. MARLO measures 9.1 cm. heart rate 165. Biophysical profile 8 out of 8 IMPRESSION: Normal biophysical profile. Live intrauterine . Signer Name: Bong Badillo MD Signed: 04/06/2022 10:39 PM Workstation Name: [id number]
== END 2022-04-06 19:36 | disposition home or self-care (01) ==
LOC: TRG 16:31 → APU 16:32 → TRG 19:36
PROVIDERS: ATTEND Obstetrics & Gynecology
DX: O13.3 Gestational [pregnancy-induced] hypertension without significant proteinuria, third trimester (principal); Z3A.31 31 weeks gestation of pregnancy
CPT/HCPCS: 36415; 76815; 76819; 81001; 82565; 83615; 84450; 84460; 84550; 85027

== ENCOUNTER 2022-05-13 14:02 | Outpatient (CLI) | payer MEDICAID ==
[2022-05-13 14:25] VITALS: BP 124/71
== END 2022-05-13 16:04 | disposition home or self-care (01) ==
LOC: TRG 14:02 → APU 14:03 → TRG 16:04
PROVIDERS: ATTEND Obstetrics & Gynecology
DX: Z34.93 Encounter for supervision of normal pregnancy, unspecified, third trimester (principal); Z3A.37 37 weeks gestation of pregnancy
CPT/HCPCS: 59025

== ENCOUNTER 2022-05-18 06:30 | Inpatient (IN) | payer MEDICAID ==
[2022-05-18] MEDS ORDERED: MINERAL OIL 30 ML ORAL LIQD PO PRN (06:32)
[2022-05-18] MEDS ORDERED: TERBUTALINE 1 MG/1 ML INJ SUB-Q PRN (06:32)
[2022-05-18] MEDS ORDERED: LIDOCAINE (2%) 20 MG/1 ML VIAL 20 ML MDV INFILTRATI ONE (06:32)
[2022-05-18] MEDS ORDERED: ACETAMINOPHEN 325 MG TAB PO PRN (06:32)
[2022-05-18] MEDS ORDERED: CARBOPROST TROMETHAMINE 250 MCG/1 ML INJ IM PRN (06:32)
[2022-05-18] MEDS ORDERED: LOPERAMIDE 2 MG CAP PO PRN (06:32)
[2022-05-18] MEDS ORDERED: BUTORPHANOL 2 MG/1 ML INJ IV PRN (06:32)
[2022-05-18] MEDS ORDERED: miSOPROStol 200 MCG TAB PR PRN (06:32)
[2022-05-18] MEDS ORDERED: METHYLERGONOVINE MALEATE 0.2 MG/ML VIAL IM PRN (06:32)
[2022-05-18] MEDS ORDERED: fentaNYL 100 MCG/2 ML INJ IV PRN (06:32)
[2022-05-18] MEDS ORDERED: ePHEDrine SULFATE 50 MG/1 ML INJ IV PRN (06:32)
[2022-05-18] MEDS ORDERED: LACTATED RINGERS 1,000 ML IV SCH (06:45)
[2022-05-18] MEDS ORDERED: KETOROLAC 30 MG/1 ML INJ IV SCH (07:00)
[2022-05-18] MEDS ORDERED: VANCOMYCIN/NS 1 GM/250 ML 1 GM/250 ML BAG IV SCH (07:00)
[2022-05-18] MEDS ORDERED: KETOROLAC 30 MG/1 ML INJ ONE (07:03)
--- NOTE | 2022-05-18 07:15 | History and Physical Report ---
History of Present Illness Date of examination: 05/18/22 Date of admission: 05/18/22 06:30 Chief complaint: contractions History of present illness: Pt is 27 year old -Citizen Of [place] female DARIANA 06/03/22 at 37w5d who presents with regular painful contractions , and was found to be completely dilated with a bulging bag of water on admission. She denies vaginal bleeding or leakage of fluid. She has had care at [facility] since 12 wks complicated by cystic area of right kidney (prominent renal pyramid vs renal cyst), genital herpes without lesion or prodrome, limited anatomy scan, and GBS positive status. Past History Past Medical History: no pertinent history Past Surgical History: D&C, other (wisdom teeth extraction ) [employer] LO[employer]DER History: herpes (no lesion or prodrome ) Family/Genetic History: none Social history: no significant social history - Obstetrical History Expected Date of Delivery: 06/03/22 Actual Gestation: 37 Week(s) 5 Day(s) : 5 Para: 2 Hx # Term Pregnancies: 2 Number of Pregnancies: 0 Spontaneous Abortions: 2 Induced : 0 Number of Living Children: 2 Medications and Allergies Allergies Allergy/AdvReac Type Severity Reaction Status Date / Time amoxicillin Allergy Hives Verified 04/02/22 08:40 Home Medications Medication Instructions Recorded Confirmed Last Taken Type Ibuprofen [Motrin] 800 mg PO Q8HR PRN #30 tablet 11/12/20 04/06/22 Unknown Rx Ibuprofen [Motrin] 800 mg PO Q8HR PRN #30 tablet 11/12/20 04/06/22 Unknown Rx Active Meds: Active Medications Acetaminophen (Acetaminophen 325 Mg Tab) 650 mg PO Q4H PRN PRN Reason: Pain, Mild (1-3) Butorphanol Tartrate (Butorphanol 2 Mg/1 Ml Inj) 1 mg IV Q2H PRN PRN Reason: Pain, Moderate(4-6) LABOR PAIN Carboprost Tromethamine (Carboprost Tromethamine 250 Mcg/1 Ml Inj) 250 mcg IM ONCE PRN PRN Reason: Uterine Bleeding Ephedrine Sulfate (Ephedrine Sulfate 50 Mg/1 Ml Inj) 10 mg IV Q2M PRN PRN Reason: Hypotension Fentanyl (Fentanyl 100 Mcg/2 Ml Inj) 100 mcg IV Q2H PRN PRN Reason: Pain,Severe (7-10) LABOR PAIN Lactated Ringer's (Lactated Ringers) 1,000 mls @ 125 mls/hr IV DIRECT LEYLA Vancomycin HCl (Vancomycin/Ns 1 Gm/250 Ml) 1 gm in 250 mls @ 167.007 mls/hr IV Q12H LEYLA; Protocol Ketorolac Tromethamine (Ketorolac 30 Mg/1 Ml Inj) 15 mg IV ONCE@0700 [facility] Stop: 05/18/22 10:00 Loperamide HCl (Loperamide 2 Mg Cap) 2 mg PO ONCE PRN PRN Reason: give with Hemabate Methylergonovine Maleate (Methylergonovine Maleate 0.2 Mg/Ml Vial) 0.2 mg IM ONCE PRN PRN Reason: Uterine Bleeding Mineral Oil (Mineral Oil 30 Ml Oral Liqd) 30 ml PO QHS PRN PRN Reason: Constipation Misoprostol (Misoprostol 200 Mcg Tab) 800 mcg AR ONCE PRN PRN Reason: Uterine Bleeding Terbutaline Sulfate (Terbutaline 1 Mg/1 Ml Inj) 0.25 mg SUB-Q ONCE PRN PRN Reason: Hyperstimulation/Hypertonicity Review of Systems All systems: negative - Vital Signs Vital signs: Vital Signs Pulse Pulse Ox 106 H 99 05/18/22 06:31 05/18/22 06:31 Temp Pulse Resp BP Pulse Ox 81 114/65 97 05/18/22 07:08 05/18/22 06:54 05/18/22 07:08 - Physical Exam Breasts: Positive: deferred Abdomen: Positive: soft (gravid ) Uterus: Positive: enlarged (gravid ) Extremities: Positive: normal - Obstetrical FHR: auscultation normal Uterine Contraction Monitor Mode: External Cervical Dilatation: 10 Cervical Effacement Percentage: 100 station: +1 Uterine Contraction Pattern: Regular Uterine Tone Measurement Phase: Resting Uterine Contraction Intensity: Strong/Firm Results All other labs normal. Assessment and Plan A: IUP at 37w5d Second stage labor Cystic area of right kidney (prominent renal pyramid vs renal cyst) Genital herpes without lesion or prodrome GBS positive status- Penicillin allergy P: Admit to labor and delivery Routine intrapartum care Anticipate Vancomycin 1g IV ordered
--- NOTE | 2022-05-18 07:21 | Procedure Note ---
OB Delivery Note - Delivery Date of Delivery: 05/18/22 Surgeon: SINGH TYLER Estimated blood loss: 200cc - Vaginal Delivery presentation: vertex Delivery position: OA Intrapartum events: precipitous labor- <3hr Delivery induction: none Delivery monitor: external FHT, external uterine Route of delivery: Delivery placenta: spontaneous Episiotomy: none Delivery laceration: none Anesthesia: none - Infant A at 1 minute: 8 at 5 minutes: 9 Infant Gender: Female (2620g (5lb 12oz) @ 0650 am)
[2022-05-18] MEDS ORDERED: OXYTOCIN DRIP 30,000 MILLIUNITS/500 ML BAG IV ONE (07:23)
[2022-05-18 07:43] LABS: Hematocrit 38.5 % (30.3-42.9); Hemoglobin 12.8 gm/dl (10.1-14.3); Mean Corpuscular HGB Conc 33 % (30-34); Mean Corpuscular Volume 86 fl (79-97); Platelet Count 210 K/mm3 (140-440); Red Blood Count 4.46 M/mm3 (3.65-5.03); Red Cell Distribution Width 13.1 % (13.2-15.2)
[2022-05-18] MEDS ORDERED: LANOLIN/ZINC/DIMETHICONE (LANSINOH) 7 GM TP PRN ×2 (14:18→15:00)
[2022-05-18] MEDS ORDERED: BENZOCAINE/MENTHOL 20/0.5% TOP SPRAY 56 GM TP PRN (15:00)
[2022-05-18] MEDS ORDERED: WITCH HAZEL/ GLYCERIN PAD TP PRN (15:00)
[2022-05-18] MEDS ORDERED: OXYTOCIN DRIP 30 UNITS/500 ML BAG IV SCH (15:00)
[2022-05-18] MEDS ORDERED: PROMETHAZINE 25 MG RECT SUPP PR PRN (15:00)
[2022-05-18] MEDS ORDERED: HYDROcodone/ACETAMINOPHEN 5-325 MG TAB PO PRN (15:00)
[2022-05-18] MEDS ORDERED: diphenhydrAMINE 25 MG CAP PO PRN (15:00)
[2022-05-18] MEDS ORDERED: ONDANSETRON 4 MG/2 ML INJ IV PRN (15:00)
[2022-05-18] MEDS ORDERED: PROMETHAZINE 25 MG TAB PO PRN (15:00)
[2022-05-18] MEDS: IBUPROFEN 800 MG TAB PO SCH ×2 (18:26→22:50)
[2022-05-18] MEDS ORDERED: MAGNESIUM HYDROXIDE (MOM) ORAL LIQD UDC PO PRN (22:00)
[2022-05-18] MEDS: DOCUSATE SODIUM 100 MG CAP PO SCH (22:50)
[2022-05-18] MEDS: FERROUS SULFATE 325 MG TAB PO SCH (22:50)
[2022-05-19 01:20] LABS: Hematocrit 32.7 % (30.3-42.9); Hemoglobin 11.1 gm/dl (10.1-14.3)
[2022-05-19] MEDS: IBUPROFEN 800 MG TAB PO SCH ×4 (05:23→23:57)
[2022-05-19] MEDS ORDERED: TETANUS,DIPH,PERTUSS(ACELL) VACCINE 0.5 ML SYRINGE IM ONE (10:00)
[2022-05-19] MEDS ORDERED: MEASLES, MUMPS & RUBELLA 12,500 UNIT/0.5 ML VACCINE SUB-Q ONE (10:00)
[2022-05-19] MEDS: FERROUS SULFATE 325 MG TAB PO SCH ×2 (10:18→23:57)
[2022-05-19] MEDS: DOCUSATE SODIUM 100 MG CAP PO SCH ×2 (10:19→23:57)
--- NOTE | 2022-05-19 14:00 | Progress Note ---
Assessment and Plan A:PPD#1 s/p at term P:Continue with routine care with discharge anticipated tomorrow. Subjective - Subjective Date of service: 05/19/22 Principal diagnosis: PPD#1 s/p at term Interval history: Patient is feeling well and without complaints. She reports adequate pain control, decreasing lochia and no issues with ambulation or voiding. Patient reports: appetite normal, voiding normally, pain well controlled, ambulating normally [place]: doing well Objective - Vital Signs Latest vital signs: Vital Signs Temp Pulse Resp BP BP Pulse Ox Pulse Ox 05/19/22 08:05 98.1 F 77 20 107/70 100 100 05/19/22 05:23 98 05/19/22 03:25 98 05/19/22 01:15 98 05/19/22 00:16 98.0 F 109 H 20 117/73 98 05/18/22 23:40 98 05/18/22 21:20 98 05/18/22 19:45 98 05/18/22 16:02 98.6 F 85 18 114/60 98 Intake and Output 05/18/22 05/19/22 05/19/22 23:59 07:59 15:59 Intake Total 240 120 600 Balance 240 120 600 Intake: Oral 240 120 240 Intake, Free Water 360 Other: Total, Intake Amount 120 120 240 # Voids Void 1 1
--- NOTE | 2022-05-19 14:01 | Discharge Summary ---
Providers - Providers Date of Admission: 05/18/22 06:30 Date of discharge: 05/20/22 Attending physician: SINGH TYLER 05/18/22 14:18 Consult to Ear Flap Binder [CONS] Routine Reason For Exam: assistance with , SNS Primary care physician: SINGH TYLER Hospitalization Reason for admission: active labor, IUP at term Delivery: Episiotomy: none Laceration: none Other procedures: none complications: none Discharge diagnosis: IUP at term delivered [place] baby: female Hospital course: The patient presented to the hospital in active labor and went on to have of viable female . Her course was uncomplicated. Condition at discharge: Good Disposition: 01 HOME / SELF CARE / HOMELESS Plan - Discharge Medications Prescriptions: Ibuprofen [Motrin] 800 mg PO Q8H PRN #30 tablet PRN Reason: Pain - Provider Discharge Summary Activity: routine, no sex for 6 weeks, no heavy lifting 4 weeks, no strenuous exercise Diet: routine Instructions: routine Additional instructions: [] Smoking cessation referral if applicable(refer to patient education folder for contact #) [] Refer to [facility] Booklet Call your doctor immediately for: * Fever > 100.5 * Heavy vaginal bleeding ( >1 pad per hour) * Severe persistent headache * Shortness of breath * Reddened, hot, painful area to leg or breast * Drainage or odor from incision. * Keep incision clean and dry at all times and follow doctor's instructions regarding bathing/showering - Follow up plan Follow up: [facility] [Advanced Practice Nurse] - 06/15/22
[2022-05-20] MEDS: IBUPROFEN 800 MG TAB PO SCH (05:44)
[2022-05-20 09:30] VITALS: BP 117/78
== END 2022-05-20 11:40 | disposition home or self-care (01) | DRG 774 ==
LOC: LD 06:30 → OB 08:46
PROVIDERS: ADMIT Obstetrics & Gynecology; ATTEND Obstetrics & Gynecology
PROC: 10E0XZZ Delivery of Products of Conception, External Approach (ICD-10-PCS; principal; 2022-05-18)
PROC: 3E0234Z Introduction of Serum, Toxoid and Vaccine into Muscle, Percutaneous Approach (ICD-10-PCS; 2022-05-19)
PROC: 3E0134Z Introduction of Serum, Toxoid and Vaccine into Subcutaneous Tissue, Percutaneous Approach (ICD-10-PCS; 2022-05-19)
DX: O62.3 Precipitate labor (principal); O98.32 Other infections with a predominantly sexual mode of transmission complicating childbirth; O99.824 Streptococcus B carrier state complicating childbirth; Q61.8 Other cystic kidney diseases; Z20.822 Contact with and (suspected) exposure to COVID-19; Z3A.37 37 weeks gestation of pregnancy; Z37.0 Single live birth; Z23 Encounter for immunization; A60.00 Herpesviral infection of urogenital system, unspecified; O99.892 Other specified diseases and conditions complicating childbirth; Z88.8 Allergy status to other drugs, medicaments and biological substances
CPT/HCPCS: 36415; 85014; 85018; 85027; 86850; 86900; 86901; G0378; J1885; U0003